=== PATIENT | female | born 1960 | race Two or more races ===

== ENCOUNTER 2017-12-10 19:35 | Emergency (ER) | payer OTHER ==
[~2017-12-10] VITALS: Ht 152.4 cm; Wt 52.2 kg
[2017-12-10] MEDS ORDERED: FORTAMET500 MG (20:00)
[2017-12-10] MEDS ORDERED: COZAAR25 MG (20:00)
[2017-12-10] MEDS ORDERED: ESTR0.624 (20:01)
[2017-12-10] MEDS ORDERED: SIMVASTATIN10 MG (20:01)
[2017-12-10] MEDS ORDERED: PNEU16DI2 (20:01)
[2017-12-10] MEDS ORDERED: OSTERA TABLET1 EACH (20:01)
== END 2017-12-11 01:27 | disposition home or self-care (01) ==
LOC: ER 19:35
DX: K80.20 Calculus of gallbladder without cholecystitis without obstruction (principal); R10.11 Right upper quadrant pain

== ENCOUNTER 2017-12-12 08:18 | Outpatient (CLI) | payer OTHER ==
[~2017-12-12 08:18] MED LIST: COZAAR25 MG; ESTR0.624; FORTAMET500 MG; OSTERA TABLET1 EACH; PNEU16DI2; SIMVASTATIN10 MG
== END 2017-12-12 13:05 | disposition home or self-care (01) ==
LOC: LAB 08:18
DX: K81.0 Acute cholecystitis (principal); I10 Essential (primary) hypertension; E11.69 Type 2 diabetes mellitus with other specified complication

== ENCOUNTER 2017-12-12 10:42 | Outpatient (CLI) | payer OTHER | END 2017-12-12 11:00 | disposition home or self-care (01) | LOC: MRI 10:42 | DX: K80.10 Calculus of gallbladder with chronic cholecystitis without obstruction (principal); K80.51 Calculus of bile duct without cholangitis or cholecystitis with obstruction | CPT/HCPCS: 74181 ==

== ENCOUNTER 2017-12-15 09:11 | Inpatient (IN) | payer OTHER ==
[~2017-12-15] VITALS: Ht 152.4 cm; Wt 49.9 kg
[2017-12-15] MEDS ORDERED: COZAAR25 MG (09:40)
[2017-12-15] MEDS ORDERED: PREMARIN0.45 MG (09:40)
== END 2017-12-17 09:14 | disposition home or self-care (01) | DRG 419 ==
LOC: ER 09:11 → SEC-K 09:50 → MEDI 09:50
PROVIDERS: Specialist
PROC: BF13YZZ Fluoroscopy of Gallbladder and Bile Ducts using Other Contrast (ICD-10-PCS; 2017-12-16)
PROC: 0FT44ZZ Resection of Gallbladder, Percutaneous Endoscopic Approach (ICD-10-PCS; principal; 2017-12-16 09:30)
DX: K80.00 Calculus of gallbladder with acute cholecystitis without obstruction (principal); E11.9 Type 2 diabetes mellitus without complications; I10 Essential (primary) hypertension; E78.49 Other hyperlipidemia